=== PATIENT | male | born 1975 | race African-American/Black ===

== ENCOUNTER 2018-09-26 16:30 | Emergency (ER) | payer OTHER ==
[2018-09-26 17:11] VITALS: BP 148/84; PULSE 88; TEMP 98.5; BMI 30.4
[2018-09-26] MEDS ORDERED: KETOROLAC TROMETHAMINE 30 MG/1 ML VIAL IM ONE (17:59)
--- NOTE | 2018-09-26 17:59 | PDOC ---
History of Present Illness - General Chief Complaint: Toothache Stated Complaint: TOOTHACHE Time Seen by Provider: 09/26/18 17:12 - History of Present Illness Initial Comments: 09/26/18 18:15 43 years old with no significant past medical history presents emergency Department with 2 day history of dental pain. Pain is located in his left posterior lower molar it appears to be affected by dental carry No fever no chills no difficulty swallowing no neck pain no headache Symptoms are moderate persistent concent progressively worsening no exacerbating or relieving factors. Past History - Past Medical History Allergies/Adverse Reactions: Allergies Allergy/AdvReac Type Severity Reaction Status Date / Time Penicillins Allergy Verified 02/12/16 10:48 "ALL CILLINS" Allergy Uncoded 02/12/16 10:48 Home Medications: Ambulatory Orders Clindamycin HCl 450 mg PO TID #63 capsule 09/26/18 Semaglutide [Ozempic] 0.25 mg SQ WEEKLY 09/26/18 Tramadol HCl 50 mg PO BID #4 tablet MDD 2 09/26/18 Asthma: Yes COPD: No Diabetes: Yes (NIDDM) HTN: Yes - Surgical History Orthopedic Surgery: Yes - Suicide/Smoking/Psychosocial Hx Smoking History: Current every day smoker Have you smoked in the past 12 months: Yes Number of Cigarettes Smoked Daily: 5 Information on smoking cessation initiated: Yes 'Breaking Loose' booklet given: 02/12/16 Hx Alcohol Use: No Drug/Substance Use Hx: No Substance Use Type: None Hx Substance Use Treatment: No Review of Systems - Review of Systems Comments:: 09/26/18 18:16 ROS: A complete review of 10 out of 10 review of systems is taken and is negative apart from what is previously mentioned below and in the HPI. *Physical Exam - Vital Signs Last Vital Signs Temp Pulse Resp BP Pulse Ox 98.5 F 88 18 148/84 98 09/26/18 16:56 09/26/18 16:56 09/26/18 16:56 09/26/18 16:56 09/26/18 16:56 - Physical Exam Comments: 09/26/18 18:16 Vitals: Triage Vital signs reviewed General Appearance: no acute distress, well nourished well developed, Head: Atraumatic, Throat: Left lower molar with dental sarita, no obvious abscess Extremities: Full range of motion to all extremities, no cyanosis, clubbing, or edema Neck: Supple Skin: Warm and dry, no rashes or lesions, no rash, no petechiae Psych: normal mood, normal affect Moderate Sedation - Procedure Monitoring Vital Signs: Procedure Monitoring Vital Signs Temperature 98.5 F 09/26/18 16:56 Pulse Rate 88 09/26/18 16:56 Respiratory Rate 18 09/26/18 16:56 Blood Pressure 148/84 09/26/18 16:56 O2 Sat by Pulse Oximetry (%) 98 09/26/18 16:56 Medical Decision Making - Medical Decision Making 09/26/18 18:18 Left lower molar dental carry We'll treat with clindamycin given penicillin ALLERGY tramadol and recommend prompt dental follow-up today or tomorrow Findings, need follow-up and strict return instructions discussed with patient. *DC/Admit/Observation/Transfer Diagnosis at time of Disposition: Toothache - Discharge Dispostion Disposition: HOME Condition at time of disposition: Good Decision to Admit order: No - Prescriptions Prescriptions: Clindamycin HCl 450 mg PO TID #63 capsule Tramadol HCl 50 mg PO BID #4 tablet MDD 2 - Referrals Referrals: Sydney Tirado MD [Primary Care Provider] - Linden Tsang DDS [Staff Physician] - - Patient Instructions Printed Discharge Instructions: DI for Dental Pain Additional Instructions: Call [address] [place] [address] Book an Appointment Clindamycin as prescribed. Alternate Tylenol and Motrin for pain. He can take tramadol for more severe pain. Follow-up today or tomorrow with a dentist in your insurance plan or with Dr. Tsang or with return to ED for any severe worsening symptoms or any concerns. - Post Discharge Activity
[2018-09-26] MEDS ORDERED: CLINDAMYCIN HCL 150 MG CAPSULE (FP) PO ONE (18:06)
[2018-09-26] MEDS ORDERED: KETOROLAC TROMETHAMINE 30 MG/1 ML VIAL ONE (18:15)
[2018-09-26] MEDS ORDERED: CLINDAMYCIN HCL 150 MG CAPSULE (FP) ONE (18:15)
== END 2018-09-26 18:30 | disposition home or self-care (01) ==
LOC: FER 16:30
PROC: 3E0233Z Introduction of Anti-inflammatory into Muscle, Percutaneous Approach (ICD-10-PCS; principal; 2018-09-26)
DX: K08.89 Other specified disorders of teeth and supporting structures (principal); F17.210 Nicotine dependence, cigarettes, uncomplicated; I10 Essential (primary) hypertension; J45.909 Unspecified asthma, uncomplicated; E11.9 Type 2 diabetes mellitus without complications
CPT/HCPCS: 99282-25

== ENCOUNTER 2019-08-22 11:24 | Emergency (ER) | payer OTHER ==
[2019-08-22 12:14] VITALS: BP 135/77; PULSE 89; TEMP 98; BMI 42.5
--- NOTE | 2019-08-22 13:51 | PDOC ---
History of Present Illness - General Chief Complaint: Vomiting/Diarrhea Stated Complaint: VOMITING/DIARRHEA Time Seen by Provider: 08/22/19 13:12 - History of Present Illness Initial Comments: 08/22/19 13:45 44-year-old male 44-year-old male without comorbidities presents for nausea and diarrhea x2 days no systemic symptoms Past History - Past Medical History Allergies/Adverse Reactions: Allergies Allergy/AdvReac Type Severity Reaction Status Date / Time Penicillins Allergy Verified 08/22/19 12:10 "ALL CILLINS" Allergy Uncoded 08/22/19 12:10 Home Medications: Ambulatory Orders Ondansetron [Zofran *Odt*] 4 mg SL TID #21 od.tablet 08/22/19 Asthma: Yes COPD: No Diabetes: Yes (NIDDM) HTN: Yes - Surgical History Orthopedic Surgery: Yes - Psycho Social/Smoking Cessation Hx Smoking History: Never smoked Have you smoked in the past 12 months: Yes Number of Cigarettes Smoked Daily: 5 'Breaking Loose' booklet given: 09/26/18 Hx Alcohol Use: No Drug/Substance Use Hx: No Substance Use Type: None Hx Substance Use Treatment: No Review of Systems - Review of Systems Constitutional: Yes: Chills, Malaise, Night Sweats. No: Fever ABD/GI: Yes: Diarrhea, Nausea. No: Vomiting *Physical Exam - Vital Signs Last Vital Signs Temp Pulse Resp BP Pulse Ox 98 F 89 18 135/77 99 08/22/19 12:11 08/22/19 12:11 08/22/19 12:11 08/22/19 12:11 08/22/19 12:11 - Physical Exam 08/22/19 13:45 HEAD: Normal with no signs of trauma. EYES: sclera anicteric, conjunctiva clear. ENT: Ears normal tympanic membranes normal oropharynx clear uvula midline NECK: Normal range of motion LUNGS: Breath sounds equal, clear to auscultation bilaterally. No wheezes, and no crackles. HEART: S1 and S2 without murmur, rub or gallop. ABDOMEN: Soft, nontender, normoactive bowel sounds. No guarding, no rebound. No masses. EXTREMITIES: Normal range of motion, no edema. No clubbing or cyanosis. No cords, erythema, or tenderness. NEUROLOGICAL: Cranial nerves II through XII grossly intact. PSYCH: Normal mood, normal affect. SKIN: Warm, Dry, normal turgor, no rashes or lesions noted. 08/22/19 13:46 Medical Decision Making - Medical Decision Making 08/22/19 13:46 Supportive care with Pedialyte Zofran for nausea. Discharge - Discharge Information Problems reviewed: Yes Clinical Impression/Diagnosis: Viral gastroenteritis Condition: Stable Disposition: HOME - Admission No - Follow up/Referral Referrals: Sydney Tirado MD [Primary Care Provider] - - Patient Discharge Instructions Additional Instructions: Supportive care with Pedialyte Zofran for nausea return to the emergency room for worsening symptoms. Small sips of Pedialyte throughout the day to maintain hydration. Tylenol and Motrin as needed for fever and as directed. Without fail follow-up with your primary care physician in 1 to 2 days for further evaluation and treatment options.. - Post Discharge Activity
== END 2019-08-22 14:14 | disposition home or self-care (01) ==
LOC: JERFT 11:24
DX: A08.4 Viral intestinal infection, unspecified (principal); B97.89 Other viral agents as the cause of diseases classified elsewhere; I10 Essential (primary) hypertension; E11.9 Type 2 diabetes mellitus without complications; Z79.84 Long term (current) use of oral hypoglycemic drugs; F17.210 Nicotine dependence, cigarettes, uncomplicated; Z88.0 Allergy status to penicillin
CPT/HCPCS: 99281-25

== ENCOUNTER 2019-09-07 16:23 | Inpatient (IN) | payer OTHER ==
[2019-09-07] MEDS ORDERED: FAMOTIDINE 20 MG/50 ML IVPB 20 MG/50 ML MG IVPB ONE ×2 (16:36→17:25)
[2019-09-07] MEDS ORDERED: ACETAMINOPHEN 1000 MG/100 ML VIAL (NON FORMULARY) IVPB ONE (16:36)
--- NOTE | 2019-09-07 16:41 | PDOC ---
History of Present Illness - General Chief Complaint: Pain Stated Complaint: UPPER ABDOMEN PAIN Time Seen by Provider: 09/07/19 16:26 History Source: Patient Exam Limitations: No Limitations - History of Present Illness Initial Comments: 09/07/19 16:38 44y M with PMH of NIDDM presenting to ED with complaints of upper abdominal/ chest tightness for 2 days. Pt says that he was seen in the ER 2 weeks ago and diagnosed with viral GE due to diarrhea and nausea. The diarrhea and nausea has stopped but he endorses upper abdominal pain that constant but worse after eating. He says the pain travels to the lower quadrants and to the sides after eating but does not radiate to the back. He also endorses shortness of breath with exertion which he has not had before. Denies vomiting, fevers, chills, hematuria, dysuria, bloody stools. Denies history of [place] in the family, recent surgeries, leg swelling, orthopnea. PMD: Din Cards: Chelita PMH: see hpi PSH: skin graft Meds: metformin Allergies: PCN Social: smokes 10 cigarettes/day Past History - Past Medical History Allergies/Adverse Reactions: Allergies Allergy/AdvReac Type Severity Reaction Status Date / Time Penicillins Allergy Verified 09/07/19 16:28 "ALL CILLINS" Allergy Uncoded 09/07/19 16:28 Home Medications: Ambulatory Orders Metformin HCl [Glucophage] 1,000 mg PO TID 09/07/19 Asthma: Yes COPD: No Diabetes: Yes (NIDDM) HTN: Yes - Surgical History Orthopedic Surgery: Yes - Psycho Social/Smoking Cessation Hx Smoking History: Former smoker Have you smoked in the past 12 months: Yes Number of Cigarettes Smoked Daily: 5 If you are a former smoker, when did you quit?: 1 wk ago Information on smoking cessation initiated: No 'Breaking Loose' booklet given: 09/26/18 Hx Alcohol Use: No Drug/Substance Use Hx: No Substance Use Type: None Hx Substance Use Treatment: No Review of Systems - Review of Systems Constitutional: No: Symptoms Reported HEENTM: No: Symptoms Reported Respiratory: Yes: Shortness of Breath, SOB with Exertion. No: Cough, SOB at Rest Cardiac (ROS): Yes: See HPI, Chest Pain ABD/GI: Yes: See HPI, Abdominal cramping. No: Diarrhea, Nausea, Vomiting : No: Symptoms Reported Musculoskeletal: No: Back Pain Integumentary: No: Symptoms Reported Neurological: No: Symptoms reported *Physical Exam - Vital Signs Last Vital Signs Temp Pulse Resp BP Pulse Ox 98.1 F 86 18 114/77 97 09/07/19 16:29 09/07/19 16:29 09/07/19 16:29 09/07/19 16:29 09/07/19 16:29 - Physical Exam General Appearance: Yes: Appropriately Dressed, Obese. No: Apparent Distress HEENT: positive: EOMI, LAUREN, Normal ENT Inspection Neck: positive: Trachea midline, Supple. negative: Lymphadenopathy (R), Lymphadenopathy (L) Respiratory/Chest: positive: Lungs Clear, Normal Breath Sounds. negative: Accessory Muscle Use, Crackles, Rales, Rhonchi, Stridor, Wheezing Cardiovascular: positive: Regular Rhythm, Regular Rate, S1, S2. negative: Edema , JVD, Murmur Gastrointestinal/Abdominal: positive: Normal Bowel Sounds, Soft. negative: Distended, Guarding, Rebound, Tenderness, Hernia, Mass Extremity: positive: Normal Capillary Refill. negative: Pedal Edema, Swelling, Calf Tenderness Integumentary: positive: Normal Color, Dry, Warm, Other (graft sites on forearm and abdomen) Neurologic: positive: outside salesperson II-XII NML intact, Fully Oriented, Alert, Normal Mood/ Affect, Normal Response, Motor Strength 5/5 Heart Score/ECG Review - History History: Slightly suspicious - Electrocardiogram EKG: Non specific repolarization disturbance - Age Age: </= 45 - Risk Factors Risk Factors Heart Score: Yes Hx Diabetes, Yes Smoking History, Yes Hx Obesity Based on the list above the patient has:: >/=3 risk factors or Hx atherosclerotic disease - Troponin Troponin: </= normal limit - Score Heart Score - Total: 3 ED Treatment Course - LABORATORY CBC & Chemistry Diagram: 09/07/19 16:45 09/07/19 16:45 - RADIOLOGY Radiology Studies Ordered: Category Date Time Status CHEST PA & LAT [RAD] Stat Radiology 09/07/19 16:35 Ordered Medical Decision Making - Medical Decision Making 09/07/19 16:41 44y M with PMH Of DM presenting to ED for abdominal/chest pain. vitals wnl ddx includes pancreatitis, gallstone, cholecystitis, acs, pe, dissection, pud -cbc, cmp, trop, lipase -ekg, cxr -ivf, ofirmev, pepcid PERC negative 09/07/19 18:30 ekg: nsr at 80bpm. normal axis, normal intervals. flat t waves in I, III, aVF, V2. trop negative pt feeling a little better but still has the discomfort labs show normal cbc, normal cmp, elevated lipase 500. no abdominal tenderness. per attending, thinking this is more cardiac; will give nitro. HEART score 3. CXR: no infiltrates/consolidations or effusions. normal heart size. will admit for acs r/o given history. admitting team requesting CTAP to check for abdominal pathology. signed out to night team. given 162mg asa 09/07/19 18:59 Discharge - Discharge Information Problems reviewed: Yes Clinical Impression/Diagnosis: Chest pain Qualifiers: Chest pain type: unspecified Qualified Code(s): R07.9 - Chest pain, unspecified Abdominal pain Qualifiers: Abdominal location: epigastric Qualified Code(s): R10.13 - Epigastric pain - Follow up/Referral - Patient Discharge Instructions - Post Discharge Activity
[2019-09-07] MEDS ORDERED: ACETAMINOPHEN INJECTION 100 ML IVPB ONE (17:05)
[2019-09-07 17:07] LABS: BASO % 0.4 % (0-2.0); EOS % 4.5 % (0-4.5); HEMATOCRIT 39.8 % (35.4-49); LYMPH % 25.7 % (8-40); MCH 29.5 pg (25.7-33.7); MCHC 32.6 g/dl (32.0-35.9); MEAN CELL VOLUME 90.3 fl (80-96); MEAN PLT VOLUME 10.1 fl (7.5-11.1); MONO % 5.9 % (3.8-10.2); NEUT % 63.5 % (42.8-82.8); PLATELET COUNT 237 K/MM3 (134-434); RBC 4.41 M/mm3 (4.00-5.60); RDW 12.4 % (11.9-15.9); WHITE BLOOD COUNT 8.5 K/mm3 (4.0-10.8)
--- NOTE | 2019-09-07 17:07 | PDOC ---
Attending Attestation - Resident Resident Name: Fanny Starr - ED Attending Attestation I have performed the following: I have examined & evaluated the patient, The case was reviewed & discussed with the resident, I agree w/resident's findings & plan, Exceptions are as noted - HPI HPI: 09/07/19 17:45 Epigastric pain for several days. Worse after eating. Radiation to the chest and lower abdomen. Denies nausea vomiting or diarrhea. Non-insulin diabetes for approximately 10 years. No known heart disease or GI disease. Smoker. - Physicial Exam PE: 09/07/19 17:46 PE: Afebrile, vital signs stable Lungs clear CV exam normal Abdomen: Obesity. Soft with no masses tenderness organomegaly. - Medical Decision Making 09/07/19 17:46 Assessment: Vague epigastric pain, with chest pain component. Nontender to exam. Obese, diabetic, smoker. At risk for cardiovascular disease. Possible peptic ulcer disease Plan: EKG and enzymes, labs, symptomatic treatment and observation. Further evaluation depending on results Patient reports considerable relief of pain with Pepcid and acetaminophen. IV fluids have been administered as well. Awaiting lab results. EKG: Normal sinus rhythm. Nonspecific ST-T wave changes consisting mostly of flattening of the ST segments in the inferior lateral leads. Chest x-ray: Increased markings and atelectatic changes at the right base. No definite infiltrates. No congestion. 09/07/19 17:51 09/07/19 18:21 EKG is nondiagnostic, although he does have some minor ST-T wave changes, which are nonspecific. Cardiac enzymes are negative. However, in view of multiple risk factors, absence of alex abdominal tenderness, and vague chest discomfort , admit for possible unstable angina, telemetry, and further cardiac evaluation. Also, lipase is mildly elevated, there could be a component of mild pancreatitis. Symptomatic treatment is warranted for this as well.
[2019-09-07] MEDS ORDERED: SODIUM CHLORIDE 1,000 ML IV STA (17:16)
[2019-09-07 17:20] LABS: ALBUMIN 3.4 g/dl (3.4-5.0); BILIRUBIN,TOTAL 0.6 mg/dl (0.2-1); CALCIUM 8.5 mg/dl (8.5-10); CREATININE 0.6 mg/dl (0.55-1.3); POTASSIUM 4.2 mmol/L (3.5-5.1); TOT PROT 6.6 g/dl (6.4-8.2)
[2019-09-07] MEDS ORDERED: NITROGLYCERIN SUBLINGUAL 1/150 0.4 MG TAB SL ONE (18:01)
[2019-09-07] MEDS ORDERED: NITROGLYCERIN SUBLINGUAL 1/150 0.4 MG TAB ONE (18:15)
[2019-09-07] MEDS ORDERED: ASPIRIN COATED 81 MG TABLET.EC PO ONE (18:58)
[2019-09-07] MEDS ORDERED: ASPIRIN 81 MG CHEWABLE TABLETS ONE (19:00)
--- NOTE | 2019-09-07 19:09 | PDOC ---
*Physical Exam - Vital Signs Last Vital Signs Temp Pulse Resp BP Pulse Ox 98.1 F 86 18 114/77 97 09/07/19 16:29 09/07/19 16:29 09/07/19 16:29 09/07/19 16:29 09/07/19 18:03 ED Treatment Course - LABORATORY CBC & Chemistry Diagram: 09/07/19 16:45 09/07/19 16:45 - ADDITIONAL ORDERS Additional order review: Laboratory Results 09/07/19 09/07/19 09/07/19 16:45 16:45 16:45 Sodium 130 L Potassium 4.2 Chloride 99 Carbon Dioxide 29 Anion Gap 2 L BUN 9.0 Creatinine 0.6 Est GFR (CKD-EPI)AfAm 143.73 Est GFR (CKD-EPI)NonAf 124.01 Random Glucose 240 H Calcium 8.5 Total Bilirubin 0.6 AST 15 ALT 22 Alkaline Phosphatase 83 Troponin I < 0.03 Total Protein 6.6 Albumin 3.4 Lipase 494 H 09/07/19 16:45 RBC 4.41 MCV 90.3 MCHC 32.6 RDW 12.4 MPV 10.1 Neutrophils % 63.5 Lymphocytes % 25.7 Monocytes % 5.9 Eosinophils % 4.5 Basophils % 0.4 - Medications Given in the ED: ED Medications Discontinued Medications Generic Name Dose Route Start Last Admin Trade Name Zak PRN Reason Stop Dose Admin Acetaminophen 1,000 mg 09/07/19 16:36 09/07/19 17:50 Ofirmev Injection - IVPB 09/07/19 16:37 1,000 mg ONCE ONE Administration Aspirin 162 mg 09/07/19 18:58 09/07/19 19:02 Ecotrin - PO 09/07/19 18:59 162 mg ONCE ONE Administration Famotidine/Sodium Chloride 20 mg in 50 mls @ 100 mls/hr 09/07/19 16:36 17:56 Pepcid 20 Mg Premixed Ivpb - IVPB 09/07/19 17:05 100 mls/hr ONCE ONE Administration Sodium Chloride 1,000 mls @ 1,000 mls/hr 09/07/19 17:16 09/07/19 18:01 Normal Saline - IV 09/07/19 18:15 1,000 mls/hr ASDIR STA Administration Nitroglycerin 0.4 mg 09/07/19 18:01 09/07/19 18:23 Nitrostat - SL 09/07/19 18:02 0.4 mg ONCE ONE Administration ED Progress Note - Progress Note Progress Note: 09/07/19 19:07 Care of this patient was transferred to [place] from Dr. Jay rossi at 1900 hrs. Patient was seen initially by the resident and Dr.D rossi. Patient will need a observation admission for chest pain however his lipase is elevated so he is scheduled for a CAT scan to rule out pancreatitis. Once I have the CAT scan results I will notify the hospitalist of the results and he will be admitted to a observation telemetry bed. 09/07/19 20:51 CAT scan was negative for any intra-abdominal pathology. Discussed with the BUSINESS LIBRARIAN patient accepted for admission to an observation telemetry bed Dr. Aguero, Discharge - Discharge Information Problems reviewed: Yes Clinical Impression/Diagnosis: Chest pain Qualifiers: Chest pain type: unspecified Qualified Code(s): R07.9 - Chest pain, unspecified Abdominal pain Qualifiers: Abdominal location: epigastric Qualified Code(s): R10.13 - Epigastric pain - Admission Yes - Follow up/Referral - Patient Discharge Instructions - Post Discharge Activity
--- NOTE | 2019-09-07 21:09 | HP ---
CHIEF COMPLAINT: Chest Pain, Abdominal Pain PCP: Josselin Tirado HISTORY OF PRESENT ILLNESS: This is a 44 y/o man with a PMHx of HTN, HLD, DM, Asthma, Severe Obesity. Who presents to the ED with chest tightness and abdominal pain x 2 days. Patient describes the chest pain as sharp radiating from right to left chest wall. He describes the abdominal pain as generalized and sharp, with belching and flatulence. He reports having a BM tonight- soft and brown. Patient reports having NBNB vomiting 2 days ago- resolved. Patient denies fever, chills, cough, dizziness, ADAMS, SOB, palpitations, diarrhea, constipation, dysuria. Patient reports that his twin brother was recently hospitalized for Pancreatitis. ER course was notable for: (1) Troponin <0.02 (2) EKG-NSR 80bpm, flat t waves I, III, aVF, V2 (3) Chest Xray- no infiltrates, no consolidations or effusions (4) Lipase 494 (5) CTAP- no definitive evidence of pancreatitis. mod to jim gallbladder contraction physiologic in nature vs secondary to chronic cholecytitis. mild diffuse hepatomegaly. small umbilical hernia containing fat only Recent Travel: none PAST MEDICAL HISTORY: See HPI PAST SURGICAL HISTORY: R-Ankle Reconstruction-plates Skin Grafts-secondary to carcamo to his body Social History: Smoking: Former, 1/2PPD x 15yrs (8 pack hx)- quit 1 week ago Alcohol: Occasional Drugs: Denies Lives with family, Independent Family History: Mother- Diabetes Grandmother- Diabetes, ESRD Brother- Pancreatitis Allergies Penicillins Allergy (Verified 09/07/19 16:28) "ALL CILLINS" Allergy (Uncoded 09/07/19 16:28) HOME MEDICATIONS: Home Medications Medication Instructions Recorded Metformin HCl [Glucophage] 1,000 mg PO TID 09/07/19 Home Medications (per patient) Ramipril ?mg PO QD Atorvastatin ?mg PO QD REVIEW OF SYSTEMS CONSTITUTIONAL: Absent: fever, chills, diaphoresis, generalized weakness, malaise, loss of appetite, weight change HEENT: Absent: rhinorrhea, nasal congestion, throat pain, throat swelling, difficulty swallowing, mouth swelling, ear pain, eye pain, visual changes CARDIOVASCULAR: chest pain Absent: syncope, palpitations, irregular heart rate, lightheadedness, peripheral edema RESPIRATORY: Absent: cough, shortness of breath, dyspnea with exertion, orthopnea, wheezing, stridor, hemoptysis GASTROINTESTINAL: abdominal pain, nausea, vomiting, Absent: abdominal distension, diarrhea, constipation, melena, hematochezia GENITOURINARY: Absent: dysuria, frequency, urgency, hesitancy, hematuria, flank pain, genital pain MUSCULOSKELETAL: Absent: myalgia, arthralgia, joint swelling, back pain, neck pain SKIN: Absent: rash, itching, pallor HEMATOLOGIC/IMMUNOLOGIC: Absent: easy bleeding, easy bruising, lymphadenopathy, frequent infections ENDOCRINE: Absent: unexplained weight gain, unexplained weight loss, heat intolerance, cold intolerance NEUROLOGIC: Absent: headache, focal weakness or paresthesias, dizziness, unsteady gait, seizure, mental status changes, bladder or bowel incontinence PSYCHIATRIC: Absent: anxiety, depression, suicidal or homicidal ideation, hallucinations. PHYSICAL EXAMINATION Vital Signs - 24 hr 09/07/19 09/07/19 09/07/19 16:29 18:03 19:40 Temperature 98.1 F 97.2 F L Pulse Rate 86 Pulse Rate [ 80 Left Radial] Respiratory 18 22 H Rate Blood Pressure 114/77 Blood Pressure 125/66 [Right Arm] O2 Sat by Pulse 97 97 94 L Oximetry (%) GENERAL: Severely Obese, awake, alert, and fully oriented, in no acute distress. HEAD: Normal with no signs of trauma. EYES: Pupils equal, round and reactive to light, extraocular movements intact, sclera anicteric, conjunctiva clear. No lid lag. EARS, NOSE, THROAT: Dry mucous membranes. Ears normal, nares patent, oropharynx clear without exudates. NECK: Normal range of motion, supple without lymphadenopathy, JVD, or masses. LUNGS: Breath sounds equal, clear to auscultation bilaterally. No wheezes, and no crackles. No accessory muscle use. HEART: Regular rate and rhythm, normal S1 and S2 without murmur, rub or gallop. ABDOMEN: Protuberant, multiple old healed scars, soft, tenderness generalized, not distended, normoactive bowel sounds, no guarding, no rebound, no masses. No hepatomegaly or splenomegaly. MUSCULOSKELETAL: Normal range of motion at all joints. No bony deformities or tenderness. No CVA tenderness. UPPER EXTREMITIES: 2+ pulses, warm, well-perfused. No cyanosis. No clubbing. No peripheral edema. LOWER EXTREMITIES: 2+ pulses, warm, well-perfused. No calf tenderness. +trace b/ l peripheral edema. NEUROLOGICAL: Cranial nerves II-XII intact. Normal speech. Gait not observed. PSYCHIATRIC: Cooperative. Good eye contact. Appropriate mood and affect. SKIN: Warm, dry, normal turgor, no rashes or lesions noted, normal capillary refill. Laboratory Results - last 24 hr 09/07/19 09/07/19 09/07/19 16:45 16:45 16:45 WBC 8.5 RBC 4.41 Hgb 13.0 Hct 39.8 D MCV 90.3 MCH 29.5 MCHC 32.6 RDW 12.4 Plt Count 237 MPV 10.1 Absolute Neuts (auto) 5.4 Neutrophils % 63.5 Lymphocytes % 25.7 Monocytes % 5.9 Eosinophils % 4.5 Basophils % 0.4 Sodium 130 L Potassium 4.2 Chloride 99 Carbon Dioxide 29 Anion Gap 2 L BUN 9.0 Creatinine 0.6 Est GFR (CKD-EPI)AfAm 143.73 Est GFR (CKD-EPI)NonAf 124.01 Random Glucose 240 H Calcium 8.5 Total Bilirubin 0.6 AST 15 ALT 22 Alkaline Phosphatase 83 Troponin I Total Protein 6.6 Albumin 3.4 Lipase 494 H 09/07/19 16:45 WBC RBC Hgb Hct MCV MCH MCHC RDW Plt Count MPV Absolute Neuts (auto) Neutrophils % Lymphocytes % Monocytes % Eosinophils % Basophils % Sodium Potassium Chloride Carbon Dioxide Anion Gap BUN Creatinine Est GFR (CKD-EPI)AfAm Est GFR (CKD-EPI)NonAf Random Glucose Calcium Total Bilirubin AST ALT Alkaline Phosphatase Troponin I < 0.03 Total Protein Albumin Lipase ASSESSMENT/PLAN: This is a 44 y/o man with a PMHx of HTN, HLD, DM, Asthma, Severe Obesity. Placed in Telemetry Observation for Chest Pain r/o ACS for further evaluation of their emergent condition. Plan: See Problem List FEN NS@60ml/hr Replete lytes prn NPO DVT ppx OOB SCDs Heparin SQ Code Status: Full Code Dispo: Observation Family Medical History Family Hx Diabetes: Grandmother (maternal), Mother Family Hx Gastrointestinal Disorder: Brother (Twin- Pancreatitis) Family Hx Renal Disease: Grandmother (maternal) Problem List - Problem (1) Chest pain Assessment/Plan: r/o ACS HEART Score 3 Serial Enzymes Continue cardiac monitoring EKG- NSR with flat Ts I, III, aVF, V2 Appreciate Cardiology consult Asa, Nitro sl, Famotidine given in ED Continue Asa Lipid panel, Mg, Phos in am HgbA1c in am Echo in am Consider Stress test- defer to Cardiology Code(s): R07.9 - CHEST PAIN, UNSPECIFIED Qualifiers: Chest pain type: unspecified Qualified Code(s): R07.9 - Chest pain, unspecified (2) Abdominal pain Assessment/Plan: Lipase 494 CTAP- reviewed Abdominal US in am Consider GI consult if no improvement Famotidine given in ED, will continue Monitor BMP Amylase in am Keep NPO for now Code(s): R10.9 - UNSPECIFIED ABDOMINAL PAIN Qualifiers: Abdominal location: epigastric Qualified Code(s): R10.13 - Epigastric pain (3) DM type 2 (diabetes mellitus, type 2) Assessment/Plan: BGMs ISS when diet resumed Hold Metformin- 2/2 recent CTAP Monitor BMP HgbA1c in am Code(s): E11.9 - TYPE 2 DIABETES MELLITUS WITHOUT COMPLICATIONS (4) HLD (hyperlipidemia) Assessment/Plan: Patient reports taking atorvastatin, does not recall dose Will need to verify with his home pharmacy in the am Code(s): E78.5 - HYPERLIPIDEMIA, UNSPECIFIED (5) HTN (hypertension) Assessment/Plan: Patient reports taking Ramipril, does not recall dose Will need to verify with pts home pharmacy tomorrow Continue to monitor BP Monitor renal function Code(s): I10 - ESSENTIAL (PRIMARY) HYPERTENSION Visit type - Emergency Visit Emergency Visit: Yes ED Registration Date: 09/07/19 Care time: The patient presented to the Emergency Department on the above date and was hospitalized for further evaluation of their emergent condition. - New Patient This patient is new to me today: Yes Date on this admission: 09/07/19 - Critical Care Critical Care patient: No
[2019-09-07] MEDS: SODIUM CHLORIDE 1,000 ML IV SCH (22:25)
[2019-09-07 22:40] VITALS: BMI 44.4
[2019-09-08] MEDS: morphine SULFATE 4 MG/ML VIAL IVPUSH PRN ×4 (00:20→21:58)
[2019-09-08] MEDS: HEPARIN NA (PORCINE) 5,000 UNITS/ML 1ML VIAL SQ SCH ×3 (06:25→21:58)
[2019-09-08 07:52] LABS: BASO % 0.5 % (0-2.0); EOS % 5.9 % (0-4.5); HEMATOCRIT 38.1 % (35.4-49); HEMOGLOBIN 12.8 GM/dl (11.7-16.9); LYMPH % 26.3 % (8-40); MCH 30.6 pg (25.7-33.7); MCHC 33.6 g/dl (32.0-35.9); MEAN PLT VOLUME 9.9 fl (7.5-11.1); MONO % 6.2 % (3.8-10.2); NEUT % 61.1 % (42.8-82.8); PLATELET COUNT 217 K/MM3 (134-434); RBC 4.19 M/mm3 (4.00-5.60); RDW 12.2 % (11.9-15.9); WHITE BLOOD COUNT 7.2 K/mm3 (4.0-10.8)
[2019-09-08 08:00] LABS: CALCIUM 8.4 mg/dl (8.5-10); CREATININE 0.7 mg/dl (0.55-1.3); MAGNESIUM 1.5 mg/dL (1.8-2.4); PHOSPHOROUS 4.2 mg/dl (2.5-4.9); POTASSIUM 4.2 mmol/L (3.5-5.1)
[2019-09-08] MEDS: ASPIRIN 81 MG CHEWABLE TABLETS PO SCH (09:25)
[2019-09-08] MEDS: FAMOTIDINE 20 MG/50 ML IVPB 20 MG/50 ML MG IVPB SCH ×2 (09:36→21:57)
[2019-09-08] MEDS: INSULIN (LEVEMIR) 100 UNITS/ML UNITS SQ SCH ×2 (10:00→21:59)
--- NOTE | 2019-09-08 10:46 | EKG ---
Test Reason : Blood Pressure : / mmHG Vent. Rate : 080 BPM Atrial Rate : 080 BPM P-R Int : 126 ms QRS Dur : 098 ms QT Int : 420 ms P-R-T Axes : 062 087 039 degrees QTc Int : 484 ms NORMAL SINUS RHYTHM POSSIBLE LEFT ATRIAL ENLARGEMENT NONSPECIFIC ST ABNORMALITY INCOMPLETE RBBB WHEN COMPARED WITH ECG OF 20-DEC-2015 13:39, NO SIGNIFICANT CHANGE WAS FOUND Confirmed by TRUE SALDANA MD ([id number]) on 09/08/2019 10:46:43 AM Referred By: DR GUERRERO Confirmed By:TRUE SALDANA MD
--- NOTE | 2019-09-08 11:06 | ECHO ---
Name: KARINA HATHAWAY Exam:Adult Echocardiogram Study Date: 09/08/2019 10:05 AM Age: 44 yrs Reason For Study: CP Height: 68 in Weight: 293 lb BSA: 2.4 m2 MMode/2D Measurements & Calculations IVSd: 1.3 cm Ao root diam: 3.4 cm LVIDd: 4.7 cm LA dimension: 3.0 cm LVIDs: 3.0 cm ACS: 1.8 cm LVPWd: 1.3 cm EDV(Teich): 102.8 ml LVOT diam: 2.5 cm ESV(Teich): 34.0 ml Doppler Measurements & Calculations MV E max luis: 86.4 cm/sec MV A max luis: 82.2 cm/sec MV dec slope: 508.0 cm/sec2 MV E/A: 1.1 Ao V2 max: 107.0 cm/sec LV V1 max P.0 mmHg Ao max P.6 mmHg LV V1 mean P.0 mmHg Ao V2 mean: 76.8 cm/sec LV V1 max: 70.8 cm/sec Ao mean P.6 mmHg LV V1 mean: 48.0 cm/sec Ao V2 VTI: 23.5 cm LV V1 VTI: 14.5 cm KELI(I,D): 3.0 cm2 KELI(V,D): 3.3 cm2 SV(LVOT): 71.5 ml PA V2 max: 89.0 cm/sec PA max P.2 mmHg Tech Comments TDS. Morbidly obese. Suboptimal apical/subcostal views. Procedure The study was technically difficult with many images being suboptimal in quality. Left Ventricle Left ventricular systolic function is grossly normal. The transmitral spectral Doppler flow pattern i s normal for age. Regional wall motion abnormalities cannot be excluded due to limited visualization. Right Ventricle The right ventricle is not well visualized. The right ventricle is borderline dilated. Right ventricu lar function cannot be assessed due to poor image quality. Atria Normal left and right atrial size and function. Mitral Valve The mitral valve is grossly normal. There is no mitral valve stenosis. There is trace mitral regurgit ation. Tricuspid Valve The tricuspid valve is normal in structure and function. There is mild tricuspid regurgitation. Aortic Valve The aortic valve opens well. No hemodynamically significant valvular aortic stenosis. No aortic regur gitation is present. Pulmonic Valve The pulmonic valve is not well visualized. There is no pulmonic valvular stenosis. Trace pulmonic stephen vular regurgitation. Great Vessels The aortic root is normal size. Pericardium/Pleura There is no pericardial effusion. Interpretation Summary The study was technically difficult with many images being suboptimal in quality. Left ventricular systolic function is grossly normal. Regional wall motion abnormalities cannot be excluded due to limited visualization. The right ventricle is not well visualized. The right ventricle is borderline dilated. Right ventricular function cannot be assessed due to poor image quality. There is mild tricuspid regurgitation. There is no pericardial effusion. MD Yanez *Chelita 09/08/2019 11:05 AM
[2019-09-08] MEDS: INSULIN SLIDING SCALE (NOVOLOG) 1 VIAL SQ SCH ×3 (12:15→21:59)
--- NOTE | 2019-09-08 16:07 | CON.CARD ---
Cardiology Consult (text) - Consultation Consultation Note: cc: epigastric pain hpi: 44 m hx htn, hld, possible cad, dm, here with epigastric pain. Sharp pain in band across epigastric area. Also some nausea and diarrhea. No cp sob palps dizzy loc pnd orthopnea le edema. Sees dr meek for cardio. pmh: per hpi psh: skin graft social: +tob fam: no premature cad, scd ros: per hpi; all others nl meds: Home Medications Medication Instructions Recorded Metformin HCl [Glucophage] 1,000 mg PO TID 09/07/19 pe: Vital Signs Period Temp Pulse Resp BP Sys/Dominguez Pulse Ox Last 24 Hr 97.2 F-98.5 F 73-86 16-22 114-140/66-93 94-98 nad no jvd rrr s1s2 no mrg cta bl nl eff aao3 no le e/c/c abd nd mild tender, pos bs no jaundice diaphoresis pos dp pt no carotid bruits Laboratory Last Values WBC 7.2 K/mm3 (4.0-10.8) 09/08/19 06:40 RBC 4.19 M/mm3 (4.00-5.60) 09/08/19 06:40 Hgb 12.8 GM/dl (11.7-16.9) 09/08/19 06:40 Hct 38.1 % (35.4-49) 09/08/19 06:40 MCV 91.0 fl (80-96) 09/08/19 06:40 MCH 30.6 pg (25.7-33.7) 09/08/19 06:40 MCHC 33.6 g/dl (32.0-35.9) 09/08/19 06:40 RDW 12.2 % (11.9-15.9) 09/08/19 06:40 Plt Count 217 K/MM3 (134-434) 09/08/19 06:40 MPV 9.9 fl (7.5-11.1) 09/08/19 06:40 Absolute Neuts (auto) 4.5 K/mm3 09/08/19 06:40 Neutrophils % 61.1 % (42.8-82.8) 09/08/19 06:40 Lymphocytes % 26.3 % (8-40) 09/08/19 06:40 Monocytes % 6.2 % (3.8-10.2) 09/08/19 06:40 Eosinophils % 5.9 % (0-4.5) H 09/08/19 06:40 Basophils % 0.5 % (0-2.0) 09/08/19 06:40 Sodium 133 mmol/L (136-145) L 09/08/19 06:40 Potassium 4.2 mmol/L (3.5-5.1) 09/08/19 06:40 Chloride 97 mmol/L (98-107) L 09/08/19 06:40 Carbon Dioxide 29 mmol/L (21-32) 09/08/19 06:40 Anion Gap 7 MMOL/L (8-16) L 09/08/19 06:40 BUN 8.0 mg/dl (7-18) 09/08/19 06:40 Creatinine 0.7 mg/dl (0.55-1.3) 09/08/19 06:40 Est GFR (CKD-EPI)AfAm 134.91 09/08/19 06:40 Est GFR (CKD-EPI)NonAf 116.40 09/08/19 06:40 POC Glucometer 206 UNITS (80-120) 09/08/19 11:46 Random Glucose 255 mg/dl (74-106) H 09/08/19 06:40 Hemoglobin A1c % 10.3 % (4.2-6.3) H 09/08/19 06:40 Calcium 8.4 mg/dl (8.5-10) L 09/08/19 06:40 Phosphorus 4.2 mg/dl (2.5-4.9) 09/08/19 06:40 Magnesium 1.5 mg/dL (1.8-2.4) L 09/08/19 06:40 Total Bilirubin 0.6 mg/dl (0.2-1) 09/07/19 16:45 AST 15 U/L (15-37) 09/07/19 16:45 ALT 22 U/L (13-61) 09/07/19 16:45 Alkaline Phosphatase 83 U/L (45-117) 09/07/19 16:45 Troponin I < 0.03 ng/ml (0.00-0.05) 09/08/19 06:40 Total Protein 6.6 g/dl (6.4-8.2) 09/07/19 16:45 Albumin 3.4 g/dl (3.4-5.0) 09/07/19 16:45 Triglycerides 202 mg/dl (0-150) H 09/08/19 06:40 Cholesterol 173 mg/dl (50-200) 09/08/19 06:40 Total LDL Cholesterol 78 mg/dl (5-100) 09/08/19 06:40 HDL Cholesterol 55 mg/dl (40-60) 09/08/19 06:40 Total Amylase 59 U/L (25-115) 09/08/19 06:40 Lipase 494 U/L (73-393) H 09/07/19 16:45 TSH 2.59 uIU/ml (0.358-3.74) 09/08/19 06:40 echo 08/2019: nl lv, rv tds, mild tr, dil ivc ecg: sr nl intervals no ishcemic changes tele: sr cxr: clear lungs a/p: 44 m hx htn, hld, possible cad, dm, here with epigastric pain. epigastric pain: -does not seem cardiac, no signs acs or chf -seems GI related, consult pending htn: -cont home med hld: -cont home statin when acute GI issues resolve cad: -2016 had mibi with possible mild ischemia -echo here with nl lvef -no anginal sxs -cont statin bp control -outpt cardio f/u
--- NOTE | 2019-09-08 19:07 | PN ---
Physical Exam: SUBJECTIVE: Patient seen and examined at bedside, still has some generalized abdominal pain. After further quesitoning, pt. endorses having taken Ozempic injections 3-4 weeks ago along with using alcohol (even though instructed not to ), also has twin brother with h/o severe pancreatitis (admitted to ICU currently for that). Asking to eat something, CT/US grossly unremarkable for acute pathology. OBJECTIVE: Vital Signs Period Temp Pulse Resp BP Sys/Dominguez Pulse Ox Last 24 Hr 97.2 F-98.5 F 73-82 16-22 121-140/66-93 94-98 GENERAL: The patient is awake, alert, and fully oriented, in no acute distress. HEAD: Normal with no signs of trauma. EYES: PERRL, extraocular movements intact, sclera anicteric, conjunctiva clear. No ptosis. ENT: Ears normal, nares patent, oropharynx clear without exudates, moist mucous membranes. NECK: Trachea midline, full range of motion, supple. LUNGS: Breath sounds equal, clear to auscultation bilaterally, no wheezes, no crackles, no accessory muscle use. HEART: Regular rate and rhythm, S1, S2 without murmur, rub or gallop. ABDOMEN: Soft, mild generalized tenderness, morbidly obese, normoactive bowel sounds, no guarding, no rebound, no hepatosplenomegaly, no masses. EXTREMITIES: 2+ pulses, warm, well-perfused, no edema. NEUROLOGICAL: Cranial nerves II through XII grossly intact. Normal speech, gait not observed. PSYCH: Normal mood, normal affect. SKIN: Warm, dry, normal turgor, no rashes or lesions noted Laboratory Results - last 24 hr 09/07/19 09/07/19 09/08/19 21:16 23:30 06:07 WBC RBC Hgb Hct MCV MCH MCHC RDW Plt Count MPV Absolute Neuts (auto) Neutrophils % Lymphocytes % Monocytes % Eosinophils % Basophils % Sodium Potassium Chloride Carbon Dioxide Anion Gap BUN Creatinine Est GFR (CKD-EPI)AfAm Est GFR (CKD-EPI)NonAf POC Glucometer 240 255 Random Glucose Hemoglobin A1c % Calcium Phosphorus Magnesium Troponin I < 0.02 Triglycerides Cholesterol Total LDL Cholesterol HDL Cholesterol Total Amylase TSH 09/08/19 09/08/19 09/08/19 06:40 06:40 06:40 WBC 7.2 RBC 4.19 Hgb 12.8 Hct 38.1 MCV 91.0 MCH 30.6 MCHC 33.6 RDW 12.2 Plt Count 217 MPV 9.9 Absolute Neuts (auto) 4.5 Neutrophils % 61.1 Lymphocytes % 26.3 Monocytes % 6.2 Eosinophils % 5.9 H Basophils % 0.5 Sodium 133 L Potassium 4.2 Chloride 97 L Carbon Dioxide 29 Anion Gap 7 L BUN 8.0 Creatinine 0.7 Est GFR (CKD-EPI)AfAm 134.91 Est GFR (CKD-EPI)NonAf 116.40 POC Glucometer Random Glucose 255 H Hemoglobin A1c % Calcium 8.4 L Phosphorus 4.2 Magnesium 1.5 L Troponin I < 0.03 Triglycerides 202 H Cholesterol 173 Total LDL Cholesterol 78 HDL Cholesterol 55 Total Amylase 59 TSH 2.59 09/08/19 09/08/19 09/08/19 06:40 11:46 16:50 WBC RBC Hgb Hct MCV MCH MCHC RDW Plt Count MPV Absolute Neuts (auto) Neutrophils % Lymphocytes % Monocytes % Eosinophils % Basophils % Sodium Potassium Chloride Carbon Dioxide Anion Gap BUN Creatinine Est GFR (CKD-EPI)AfAm Est GFR (CKD-EPI)NonAf POC Glucometer 206 214 Random Glucose Hemoglobin A1c % 10.3 H Calcium Phosphorus Magnesium Troponin I Triglycerides Cholesterol Total LDL Cholesterol HDL Cholesterol Total Amylase TSH Active Medications Generic Name Dose Route Start Last Admin Trade Name Rmq PRN Reason Stop Dose Admin Aspirin 81 mg 09/08/19 10:00 09/08/19 09:25 Asa - PO 81 mg DAILY TOMAS Administration Heparin Sodium (Porcine) 5,000 unit 09/08/19 06:00 09/08/19 14:45 Heparin - SQ 5,000 unit TID TOMAS Administration Sodium Chloride 1,000 mls @ 75 mls/hr 09/07/19 21:00 09/07/19 22:25 Normal Saline - IV 75 mls/hr ASDIR TOMAS Administration Famotidine/Sodium Chloride 20 mg in 50 mls @ 100 mls/hr 09/08/19 10:00 09:36 Pepcid 20 Mg Premixed Ivpb - IVPB 100 mls/hr BID TOMAS Administration Insulin Aspart 1 vial 09/08/19 11:00 09/08/19 18:55 Novolog Vial Sliding Scale - SQ 6 units ACHS TOMAS Administration Protocol Insulin Detemir 5 units 09/08/19 10:00 09/08/19 10:00 Levemir Vial SQ 5 units BID@0700,2200 TOMAS Administration Morphine Sulfate 4 mg 09/07/19 23:59 09/08/19 14:45 Morphine Sulfate IVPUSH 4 mg Q6H PRN Administration PAIN LEVEL 6-10 ASSESSMENT/PLAN: 44 Obese AA male, h/o DM 2, HTN, HLD, ?alcoholism, CAD, GERD admitted for generalized abdominal pain. Epigastric pain likely 2/2 early pancreatitis due to history of taking GLP1 injection, etoh intake, elevated lipase, nature of pain etc., not appreciated on radiology will slowly advance diet, if tolerated and lipase trending down no need for further imaging (MRI), if pain does not improve however pt. may need more detailed imaging such as Abdominal MRI w/ contrast to evaluate pancreas, will get lipase for AM, advance diet as tolerated cont. H2 ephraim, IVF, clear diet HTN Cont. Home meds HLD hold statin for now as per Cardio recs CAD -2016 had mibi with possible mild ischemia -echo here with nl lvef -no anginal sxs -cont statin bp control -outpt cardio f/u as per cardio, ACS ruled out Morbid obesity counseled on diet, exericse weight loss T2DM was on Ozempic injection in the past, self stopped due to abdominal pain counseled on Etoh cessation ISS, basal insulin PRn for sugar control Endo consult: Dr Dhillon Clear diet Visit type - Emergency Visit Emergency Visit: Yes ED Registration Date: 09/08/19 Care time: The patient presented to the Emergency Department on the above date and was hospitalized for further evaluation of their emergent condition. - New Patient This patient is new to me today: Yes Date on this admission: 09/08/19 - Critical Care Critical Care patient: No - Discharge Referral Referred to [facility] Med P.C.: No
[2019-09-08] MEDS ORDERED: MAGNESIUM OXIDE 400 MG TABLET (FP) PO ONE (19:08)
[2019-09-08] MEDS: SODIUM CHLORIDE 1,000 ML IV SCH (21:57)
[2019-09-09] MEDS: HEPARIN NA (PORCINE) 5,000 UNITS/ML 1ML VIAL SQ SCH ×3 (06:26→21:45)
[2019-09-09] MEDS: INSULIN (LEVEMIR) 100 UNITS/ML UNITS SQ SCH ×2 (08:19→21:57)
[2019-09-09] MEDS: INSULIN SLIDING SCALE (NOVOLOG) 1 VIAL SQ SCH ×4 (08:20→22:03)
[2019-09-09] MEDS: morphine SULFATE 4 MG/ML VIAL IVPUSH PRN ×3 (08:20→20:45)
[2019-09-09 08:42] LABS: BASO % 0.3 % (0-2.0); EOS % 6.7 % (0-4.5); HEMATOCRIT 38.3 % (35.4-49); HEMOGLOBIN 12.7 GM/dl (11.7-16.9); MCHC 33.3 g/dl (32.0-35.9); MEAN CELL VOLUME 90.1 fl (80-96); MEAN PLT VOLUME 10.1 fl (7.5-11.1); MONO % 6.7 % (3.8-10.2); NEUT % 62.3 % (42.8-82.8); PLATELET COUNT 221 K/MM3 (134-434); RBC 4.25 M/mm3 (4.00-5.60); RDW 12.4 % (11.9-15.9); WHITE BLOOD COUNT 6.4 K/mm3 (4.0-10.8)
[2019-09-09 08:56] LABS: ALBUMIN 3.4 g/dl (3.4-5.0); BILIRUBIN,TOTAL 1.2 mg/dl (0.2-1); CALCIUM 8.4 mg/dl (8.5-10); CREATININE 0.6 mg/dl (0.55-1.3); POTASSIUM 3.8 mmol/L (3.5-5.1); TOT PROT 6.3 g/dl (6.4-8.2)
[2019-09-09] MEDS: FAMOTIDINE 20 MG/50 ML IVPB 20 MG/50 ML MG IVPB SCH ×2 (10:10→21:45)
[2019-09-09] MEDS: ASPIRIN 81 MG CHEWABLE TABLETS PO SCH (10:10)
--- NOTE | 2019-09-09 16:11 | PN ---
Progress Note, Physician Chief Complaint: Patient is still complaint of abdominal pain - Current Medication List Current Medications: Active Medications Aspirin (Asa -) 81 mg PO DAILY [facility] Last Admin: 09/09/19 10:10 Dose: 81 mg Heparin Sodium (Porcine) (Heparin -) 5,000 unit SQ TID [facility] Last Admin: 09/09/19 14:00 Dose: 5,000 unit Sodium Chloride (Normal Saline -) 1,000 mls @ 75 mls/hr IV ASDIR [facility] Last Admin: 09/08/19 21:57 Dose: 75 mls/hr Famotidine/Sodium Chloride (Pepcid 20 Mg Premixed Ivpb -) 20 mg in 50 mls @ 100 mls/hr IVPB BID [facility] Last Admin: 09/09/19 10:10 Dose: 100 mls/hr Insulin Aspart (Novolog Vial Sliding Scale -) 1 vial SQ ACHS [facility]; Protocol Last Admin: 09/09/19 11:45 Dose: 4 units Insulin Detemir (Levemir Vial) 5 units SQ BID@0700,2200 [facility] Last Admin: 09/09/19 08:19 Dose: 5 units Morphine Sulfate (Morphine Sulfate) 4 mg IVPUSH Q6H PRN PRN Reason: PAIN LEVEL 6-10 Last Admin: 09/09/19 14:12 Dose: 4 mg - Objective Vital Signs: Vital Signs Temperature 97.5 F L 09/09/19 14:00 Pulse Rate 71 09/09/19 14:00 Respiratory Rate 18 09/09/19 14:00 Blood Pressure 128/77 09/09/19 14:00 O2 Sat by Pulse Oximetry (%) 95 09/09/19 14:00 General: Pleasant man comfortable, not in distress HEENT; mucous membranes moist, no anemia, no jaundice, PERRLA, no nystagmus Neck: No JVD, supple, no bruit, thyroid palpably normal, normal carotid pulsations. Chest: Nontender clear to auscultation bilaterally CVS: S1-S2 regular no murmur/gallop/rub Abdomen: Mild epigastric tenderness non-distended, soft, bowel sounds present. Extremities: No edema., No cough tenderness, pulses present [employer]: AO X3 , no gross motor sensory deficit Labs: CBC, BMP 09/09/19 07:52 09/09/19 07:52 Problem List - Problems (1) Abdominal pain Assessment/Plan: No obvious etiology, still complaint of nausea, initial mild elevation of lipase trended normal, continue PPI, we are Reglan will consider GI consult if remains symptomatic. Advance p.o. as tolerates. Problems reviewed: Yes Code(s): R10.9 - UNSPECIFIED ABDOMINAL PAIN Qualifiers: Abdominal location: epigastric Qualified Code(s): R10.13 - Epigastric pain (2) HTN (hypertension) Assessment/Plan: Well-controlled on the current medication continue same Problems reviewed: Yes Code(s): I10 - ESSENTIAL (PRIMARY) HYPERTENSION (3) Acute pancreatitis Assessment/Plan: Mild pancreatitis can be GLP 1 induced will hold, lipase trended normal, CT scan no evidence of acute pancreatitis., Abdominal ultrasound is normal Problems reviewed: Yes Code(s): K85.90 - ACUTE PANCREATITIS WITHOUT NECROSIS OR INFECTION, UNSP (4) DM type 2 (diabetes mellitus, type 2) Assessment/Plan: We will gradually resume the home medication except GLP-1 optimize glycemic control. Problems reviewed: Yes Code(s): E11.9 - TYPE 2 DIABETES MELLITUS WITHOUT COMPLICATIONS (5) HLD (hyperlipidemia) Assessment/Plan: Continue statin Problems reviewed: Yes Code(s): E78.5 - HYPERLIPIDEMIA, UNSPECIFIED (6) Chest pain Assessment/Plan: Patient has mildly positive MIBI in 2016, this presentation is atypical evaluated by cardiology. We will DC telemetry monitoring. Problems reviewed: Yes Code(s): R07.9 - CHEST PAIN, UNSPECIFIED Qualifiers: Chest pain type: unspecified Qualified Code(s): R07.9 - Chest pain, unspecified
[2019-09-09] MEDS: SODIUM CHLORIDE 1,000 ML IV SCH (21:44)
[2019-09-10] MEDS: morphine SULFATE 4 MG/ML VIAL IVPUSH PRN ×2 (02:06→08:55)
[2019-09-10] MEDS ORDERED: COLCHICINE 0.6 MG CAP PO ONE (02:13)
[2019-09-10] MEDS ORDERED: IBUPROFEN 600 MG TABLET (FP) PO ONE (02:14)
[2019-09-10] MEDS: HEPARIN NA (PORCINE) 5,000 UNITS/ML 1ML VIAL SQ SCH ×3 (06:10→22:00)
[2019-09-10] MEDS: INSULIN (LEVEMIR) 100 UNITS/ML UNITS SQ SCH ×2 (06:12→21:23)
[2019-09-10] MEDS: INSULIN SLIDING SCALE (NOVOLOG) 1 VIAL SQ SCH ×4 (06:14→21:24)
[2019-09-10] MEDS: FAMOTIDINE 20 MG/50 ML IVPB 20 MG/50 ML MG IVPB SCH ×2 (09:03→21:24)
[2019-09-10] MEDS: ASPIRIN 81 MG CHEWABLE TABLETS PO SCH (09:03)
[2019-09-10 09:27] LABS: BASO % 0.5 % (0-2.0); HEMATOCRIT 38.4 % (35.4-49); HEMOGLOBIN 12.5 GM/dl (11.7-16.9); MCH 29.3 pg (25.7-33.7); MCHC 32.6 g/dl (32.0-35.9); MEAN CELL VOLUME 89.9 fl (80-96); MEAN PLT VOLUME 11.1 fl (7.5-11.1); MONO % 7.9 % (3.8-10.2); NEUT % 53.6 % (42.8-82.8); PLATELET COUNT 221 K/MM3 (134-434); RBC 4.27 M/mm3 (4.00-5.60); RDW 12.3 % (11.9-15.9); WHITE BLOOD COUNT 6.7 K/mm3 (4.0-10.8)
[2019-09-10 09:34] LABS: ALBUMIN 3.4 g/dl (3.4-5.0); BILIRUBIN,TOTAL 1.2 mg/dl (0.2-1); CALCIUM 8.3 mg/dl (8.5-10); CREATININE 0.6 mg/dl (0.55-1.3); POTASSIUM 3.8 mmol/L (3.5-5.1); TOT PROT 6.4 g/dl (6.4-8.2)
[2019-09-10] MEDS ORDERED: ACETAMINOPHEN 325 MG TABLET (FP) PO PRN (12:11)
[2019-09-10] MEDS: predniSONE 10 MG TABLET (UD) PO SCH (12:40)
[2019-09-10] MEDS: COLCHICINE 0.6 MG CAP PO SCH (12:40)
[2019-09-10] MEDS ORDERED: SODIUM CHLORIDE 1,000 ML IV SCH (14:45)
[2019-09-11] MEDS: HEPARIN NA (PORCINE) 5,000 UNITS/ML 1ML VIAL SQ SCH ×2 (06:12→15:33)
[2019-09-11] MEDS: INSULIN (LEVEMIR) 100 UNITS/ML UNITS SQ SCH (06:16)
[2019-09-11] MEDS: INSULIN SLIDING SCALE (NOVOLOG) 1 VIAL SQ SCH ×2 (06:16→12:28)
[2019-09-11 07:49] LABS: BASO % 0.5 % (0-2.0); EOS % 1.2 % (0-4.5); HEMATOCRIT 40.6 % (35.4-49); HEMOGLOBIN 13.5 GM/dl (11.7-16.9); LYMPH % 22.6 % (8-40); MCHC 33.2 g/dl (32.0-35.9); MEAN CELL VOLUME 90.5 fl (80-96); MEAN PLT VOLUME 10.9 fl (7.5-11.1); MONO % 5.4 % (3.8-10.2); NEUT % 70.3 % (42.8-82.8); PLATELET COUNT 237 K/MM3 (134-434); RBC 4.49 M/mm3 (4.00-5.60); RDW 12.3 % (11.9-15.9); WHITE BLOOD COUNT 6.2 K/mm3 (4.0-10.8)
[2019-09-11 08:00] LABS: ALBUMIN 3.6 g/dl (3.4-5.0); BILIRUBIN,TOTAL 0.7 mg/dl (0.2-1); CREATININE 0.7 mg/dl (0.55-1.3); POTASSIUM 4.1 mmol/L (3.5-5.1); TOT PROT 6.9 g/dl (6.4-8.2)
[2019-09-11] MEDS: COLCHICINE 0.6 MG CAP PO SCH (10:25)
[2019-09-11] MEDS: ASPIRIN 81 MG CHEWABLE TABLETS PO SCH (10:25)
[2019-09-11] MEDS: FAMOTIDINE 20 MG/50 ML IVPB 20 MG/50 ML MG IVPB SCH (10:25)
[2019-09-11] MEDS: predniSONE 10 MG TABLET (UD) PO SCH (10:25)
--- NOTE | 2019-09-11 14:26 | PN ---
Progress Note (short form) - Note Progress Note: s: no chest pain, palps, dizziness, dyspnea Current Medications Acetaminophen (Tylenol -) 650 mg PO Q4H PRN PRN Reason: PAIN Last Admin: 09/10/19 13:50 Dose: 650 mg Aspirin (Asa -) 81 mg PO DAILY [facility] Last Admin: 09/11/19 10:25 Dose: 81 mg Colchicine (Colcrys) 0.6 mg PO DAILY [facility] Last Admin: 09/11/19 10:25 Dose: 0.6 mg Heparin Sodium (Porcine) (Heparin -) 5,000 unit SQ TID [facility] Last Admin: 09/11/19 06:12 Dose: 5,000 unit Famotidine/Sodium Chloride (Pepcid 20 Mg Premixed Ivpb -) 20 mg in 50 mls @ 100 mls/hr IVPB BID [facility] Last Admin: 09/11/19 10:25 Dose: 100 mls/hr Sodium Chloride (Normal Saline -) 1,000 mls @ 100 mls/hr IV ASDIR [facility] Last Admin: 09/10/19 15:25 Dose: 100 mls/hr Insulin Aspart (Novolog Vial Sliding Scale -) 1 vial SQ ACHS [facility]; Protocol Last Admin: 09/11/19 12:28 Dose: 6 units Insulin Detemir (Levemir Vial) 5 units SQ BID@0700,2200 [facility] Last Admin: 09/11/19 06:16 Dose: 5 units Prednisone (Deltasone -) 30 mg PO DAILY [facility] Last Admin: 09/11/19 10:25 Dose: 30 mg pe: Vital Signs Period Temp Pulse Resp BP Sys/Dominguez Pulse Ox Last 24 Hr 97.6 F-98.5 F 80-94 17-20 120-141/77-90 94-97 nad no jvd rrr s1s2 no mrg cta bl nl eff aao3 no le e/c/c abd nd mild tender, pos bs no jaundice diaphoresis pos dp pt no carotid bruits echo 08/2019: nl lv, rv tds, mild tr, dil ivc ecg: sr nl intervals no ishcemic changes cxr: clear lungs a/p: 44 m hx htn, hld, possible cad, dm, here with epigastric pain. epigastric pain: -does not seem cardiac, no signs acs or chf - likely GI related, now resolved - echo unremarkable - no further cardiac workup at this point, follow up with Dr. Merlos htn: -cont home med hld: -cont home statin when acute GI issues resolve cad: -2016 had mibi with possible mild ischemia -echo here with nl lvef -no anginal sxs -cont statin bp control -outpt cardio f/u
[2019-09-11 14:27] VITALS: BP 112/84; PULSE 92; TEMP 98.1
--- NOTE | 2019-09-11 14:39 | DS ---
Physical Exam: SUBJECTIVE: Patient seen and examined OBJECTIVE: Vital Signs Period Temp Pulse Resp BP Sys/Dominguez Pulse Ox Last 24 Hr 97.6 F-98.5 F 80-94 17-20 112-141/77-90 94-97 PHYSICAL EXAM GENERAL: The patient is awake, alert, and fully oriented, in no acute distress. HEAD: Normal with no signs of trauma. EYES: PERRL, extraocular movements intact, sclera anicteric, conjunctiva clear. ENT: Ears normal, nares patent, oropharynx clear without exudates, moist mucous membranes. NECK: Trachea midline, full range of motion, supple. LUNGS: Breath sounds equal, clear to auscultation bilaterally, no wheezes, no crackles, no accessory muscle use. HEART: Regular rate and rhythm, S1, S2 without murmur, rub or gallop. ABDOMEN: Soft, nontender, nondistended, normoactive bowel sounds, no guarding, no rebound, no hepatosplenomegaly, no masses. EXTREMITIES: 2+ pulses, warm, well-perfused, no edema. NEUROLOGICAL: Cranial nerves II through XII grossly intact. Normal speech, gait not observed. PSYCH: Normal mood, normal affect. SKIN: Warm, dry, normal turgor, no rashes or lesions noted. LABS Laboratory Results - last 24 hr 09/10/19 09/10/19 09/10/19 14:20 14:20 16:26 WBC RBC Hgb Hct MCV MCH MCHC RDW Plt Count MPV Absolute Neuts (auto) Neutrophils % Lymphocytes % Monocytes % Eosinophils % Basophils % Sodium Potassium Chloride Carbon Dioxide Anion Gap BUN Creatinine Est GFR (CKD-EPI)AfAm Est GFR (CKD-EPI)NonAf POC Glucometer 322 Random Glucose Uric Acid Calcium Total Bilirubin AST ALT Alkaline Phosphatase Total Protein Albumin Urine Osmolality 117 L Ur Random Sodium 33 L 09/10/19 09/10/19 09/11/19 18:02 21:18 06:15 WBC RBC Hgb Hct MCV MCH MCHC RDW Plt Count MPV Absolute Neuts (auto) Neutrophils % Lymphocytes % Monocytes % Eosinophils % Basophils % Sodium Potassium Chloride Carbon Dioxide Anion Gap BUN Creatinine Est GFR (CKD-EPI)AfAm Est GFR (CKD-EPI)NonAf POC Glucometer 359 321 239 Random Glucose Uric Acid Calcium Total Bilirubin AST ALT Alkaline Phosphatase Total Protein Albumin Urine Osmolality Ur Random Sodium 02/09/11/19 09/11/19 06:40 06:40 12:18 WBC 6.2 RBC 4.49 Hgb 13.5 Hct 40.6 MCV 90.5 MCH 30.0 MCHC 33.2 RDW 12.3 Plt Count 237 MPV 10.9 Absolute Neuts (auto) 4.4 Neutrophils % 70.3 D Lymphocytes % 22.6 D Monocytes % 5.4 Eosinophils % 1.2 D Basophils % 0.5 Sodium 138 Potassium 4.1 Chloride 102 Carbon Dioxide 29 Anion Gap 7 L BUN 8.0 Creatinine 0.7 Est GFR (CKD-EPI)AfAm 134.91 Est GFR (CKD-EPI)NonAf 116.40 POC Glucometer 237 Random Glucose 282 H Uric Acid 6.0 Calcium 9.0 Total Bilirubin 0.7 AST 98 H ALT 71 H Alkaline Phosphatase 107 D Total Protein 6.9 Albumin 3.6 Urine Osmolality Ur Random Sodium HOSPITAL COURSE: Date of Admission:09/08/19 Date of Discharge: 09/11/19 Minutes to complete discharge: 35 Discharge Summary Problems reviewed: Yes Reason For Visit: [email or web address].PAIN/INCREASED SERUM LIPASE LEVEL/CHEST P Current Active Problems Abdominal pain (Acute) Acute pancreatitis (Acute) Chest pain (Acute) Condition: Improved - Instructions Diet, Activity, Other Instructions: During your hospital stay you were treated for mild pancreatitis which may have occurred because you were taking Ozempic with or without alcohol. You should STOP TAKING OZEMPIC and refrain from alcohol. Your HgbA1C is very high, 10.3. You need to get better control of your diabetes. Prescriptions have been sent to your pharmacy for two types of insulin: Novolog (short acting) and Levemir (long acting). Take these medications as directed. For short-acting Novolog, follow the following scale: Blood sugar Dose to administer of Novolog 101-150 2 151-200 4 201-250 6 251-300 8 301-350 10 351-400 12 >400 Call your provider Please make an appointment to see your butt presser, Dr. Dhillon, as soon as possible. Referrals: Richard Sena MD [Staff Physician] - Disposition: HOME - Home Medications Comprehensive Discharge Medication List: Ambulatory Orders Metformin HCl [Glucophage] 1,000 mg PO TID 09/07/19 Alcohol Antiseptic Pads [Alcohol Prep Pad] 1 each TP ACHS #2 box 09/11/19 Blood Sugar Diagnostic [Glucose Test Strip] 1 each MC ACHS #2 box 09/11/19 Insulin Aspart [Novolog] 100 unit SQ ACHS #2 cartridge 09/11/19 Insulin Detemir [Levemir Flextouch] 5 unit SQ BID #1 insuln.pen 09/11/19 Lancets [Lancets Ultra Thin] 1 each MC ASDIR #2 box 09/11/19 Miscellaneous Medical Supply [Glucometer Device] 1 each ACHS #1 kit 09/11/19 This patient is new to me today: Yes Date on this admission: 09/11/19 Emergency Visit: Yes ED Registration Date: 09/08/19 Care time: The patient presented to the Emergency Department on the above date and was hospitalized for further evaluation of their emergent condition. Critical Care patient: No - Discharge Referral Referred to [facility] No
== END 2019-09-11 15:45 | disposition home or self-care (01) | DRG 812 ==
LOC: FER 16:23 → FM/S 18:03 → INTOOBSV 18:03 → OBSVTOIN 09-08 17:54
PROVIDERS: ADMIT Internal Medicine; ATTEND Nurse Practitioner Acute Care
DX: T50.991A Poisoning by other drugs, medicaments and biological substances, accidental (unintentional), initial encounter (principal); E78.5 Hyperlipidemia, unspecified; E66.01 Morbid (severe) obesity due to excess calories; Z68.41 Body mass index [BMI] 40.0-44.9, adult; R10.9 Unspecified abdominal pain; E87.1 Hypo-osmolality and hyponatremia; K85.90 Acute pancreatitis without necrosis or infection, unspecified; I25.10 Atherosclerotic heart disease of native coronary artery without angina pectoris; K21.9 Gastro-esophageal reflux disease without esophagitis; I10 Essential (primary) hypertension; E11.9 Type 2 diabetes mellitus without complications; Y92.89 Other specified places as the place of occurrence of the external cause
CPT/HCPCS: 36415; 71046-TC-FY; 74177-TC; 76700-TC; 80048; 80053; 80061; 82150; 82962; 83036; 83690; 83735; 83935; 84100; 84300; 84443; 84484; 84550; 85025; 93005; 93306-TC; 99285-25; G0378; J0131; J1644; J7030; Q9967